=== PATIENT | female | born 1990 | race Caucasian/White ===

== ENCOUNTER 2018-12-31 11:50 | Inpatient (IN) | payer OTHER ==
[2018-12-31] MEDS ORDERED: OXYTOCIN 30 UNITS in 0.9% NS 30 UNIT/500 ML INFUS.BAG IVPB SCH (16:15)
--- NOTE | 2018-12-31 16:19 | HP ---
Past Medical History - Admission Chief Complaint: Labor pain History of Present Illness: 28 yo @ 39 weeks gestation, EDC 01/02/19, admitted for labor pain. Upon admission she was 4cm dilated with intact membrane. History Source: Patient Limitations to Obtaining History: No Limitations - Past Medical History ...: 5 ...Para: 3 ...Term: 3 ...Induced : 1 ...EDC by [facility]: 01/02/19 - Past Surgical History Past Surgical History: Yes: None Hx Myomectomy: No Hx Transabdominal Cerclage: No - Smoking History Smoking history: Never smoked Have you smoked in the past 12 months: No - Alcohol/Substance Use Hx Alcohol Use: No History of Substance Use: reports: None - Social History Usual Living Arrangement: Yes: With Significant Other History of Recent Travel: No Home Medications - Allergies Allergies/Adverse Reactions: Allergies Allergy/AdvReac Type Severity Reaction Status Date / Time No Known Allergies Allergy Verified 04/04/16 23:03 - Home Medications Home Medications: Ambulatory Orders NK [No Known Home Medication] 12/31/18 Review of Systems - Review of Systems Constitutional: reports: No Symptoms Eyes: reports: No Symptoms HENT: reports: No Symptoms Neck: reports: No Symptoms Cardiovascular: reports: No Symptoms Respiratory: reports: No Symptoms Gastrointestinal: reports: No Symptoms Genitourinary: reports: Pain Breasts: reports: No Symptoms Reported Musculoskeletal: reports: No Symptoms Integumentary: reports: No Symptoms Neurological: reports: No Symptoms Endocrine: reports: No Symptoms Hematology/Lymphatic: reports: No Symptoms Psychiatric: reports: No Symptoms Pain Intensity: 4 Physical Exam - Maternity Vital Signs: Vital Signs Temperature 98.5 F 12/31/18 15:00 Pulse Rate 84 12/31/18 15:00 Respiratory Rate 20 12/31/18 15:00 Blood Pressure 112/67 12/31/18 15:00 O2 Sat by Pulse Oximetry (%) Constitutional: Yes: Well Nourished Eyes: Yes: Conjunctiva Clear HENT: Yes: Atraumatic Neck: Yes: Supple Cardiovascular: Yes: Regular Rate and Rhythm Lungs: Clear to auscultation - Abdominal Exam/OB Number of Fetuses: Single Presentation: Vertex - Vaginal Exam/OB Dilatation (cm): 4 Effacement (%): 70 Amniotic Membrane Status: Intact Presentation: Vertex/Position Station: -2 - Physical Exam Musculoskeletal: Yes: WNL Extremities: Yes: WNL Integumentary: Yes: WNL ...Motor Strength: WNL Psychiatric: Yes: Alert, Oriented Problem List - Problems (1) 39 weeks gestation of Problems reviewed: Yes Code(s): Z3A.39 - 39 WEEKS GESTATION OF (2) Pain during labor Problems reviewed: Yes Code(s): O99.89 - OTH DISEASES AND CONDITIONS COMPL PREG/CHLDBRTH; R52 - PAIN, UNSPECIFIED Assessment/Plan 39 weeks gestation Labor pain Admit to L&D Analgesia as needed Consider pitocin augmentation
[2018-12-31] MEDS: DEXTROSE 5%-LACTATED RINGERS 1,000 ML IV SCH (16:30)
[2018-12-31 16:36] VITALS: BMI 23.0
[2018-12-31] MEDS ORDERED: AMPICILLIN SODIUM 2 GM VIAL ONE (16:41)
[2018-12-31] MEDS ORDERED: AMPICILLIN - 2 GM in SODIUM CHLORIDE 100 ML IVPB ONE (16:55)
[2018-12-31] MEDS ORDERED: OXYTOCIN 30 UNITS in 0.9% NS 30 UNIT/500 ML INFUS.BAG IVPB ONE (17:12)
[2018-12-31 17:13] LABS: BASO % 0.1 % (0-2.0); EOS % 0.3 % (0-4.5); HEMATOCRIT 30.8 % (32.4-45.2); LYMPH % 9.5 % (8-40); MCH 28.8 pg (25.7-33.7); MCHC 32.5 g/dl (32.0-36.0); MEAN CELL VOLUME 88.8 fl (80-96); MEAN PLT VOLUME 11.4 fl (7.5-11.1); MONO % 4.9 % (3.8-10.2); NEUT % 85.2 % (42.8-82.8); PLATELET COUNT 165 K/MM3 (134-434); RBC 3.47 M/mm3 (3.60-5.2); RDW 14.7 % (11.6-15.6); WHITE BLOOD COUNT 10.4 K/mm3 (4.0-10.0)
[2018-12-31 17:39] LABS: INR 0.93 (0.83-1.09)
[2018-12-31 17:42] LABS: ACTIVATED PTT 26.9 SECONDS (25.2-36.5)
[2018-12-31 17:43] LABS: CALCIUM 8.9 mg/dL (8.5-10.1); CREATININE 0.8 mg/dL (0.55-1.3); POTASSIUM 4.7 mmol/L (3.5-5.1)
[2018-12-31 18:20] LABS: COCAINE, UR NEGATIVE ng/ml (CUTOFF=300); METHADONE, UR NEGATIVE ng/ml (CUTOFF=300); OPIATES, URI NEGATIVE ng/ml (CUTOFF=300); PHENCYCLIDINE,URINE NEGATIVE ng/ml (CUTOFF=25); URINE AMPHETAMINES NEGATIVE ng/ml (CUTOFF=500); URINE BARBITURATES NEGATIVE ng/ml (CUTOFF=200); URINE BENZODIAZEPINES NEGATIVE ng/ml (CUTOFF=200)
[2018-12-31] MEDS ORDERED: FENTANYL/BUPIVACAINE/NS/PF - PCEA - 50 ML DISP.SYRIN EP ONE (19:30)
[2018-12-31] MEDS ORDERED: NALOXONE HCL 0.4 MG/ML VIAL IVPUSH PRN (20:02)
[2018-12-31] MEDS ORDERED: LIDO 2%/EPI 1:200000 PRESRVFRE (20 ML SDVIAL) ONE (20:13)
[2018-12-31] MEDS ORDERED: BUPIVACAINE HCL/PF 2.5 MG/ML - 30 ML VIAL IJ ONE (20:13)
[2018-12-31] MEDS ORDERED: FENTANYL/BUPIVACAINE/NS/PF - PCEA - 50 ML DISP.SYRIN EP SCH (20:15)
[2018-12-31] MEDS ORDERED: OXYTOCIN 20 UNITS in 0.9% NS 20 UNIT/1,000 ML INFUS.BAG IV ONE ×2 (20:42→22:45)
[2018-12-31] MEDS: OXYTOCIN 20 UNITS in 0.9% NS 20 UNIT/1,000 ML INFUS.BAG IV SCH (20:55)
[2018-12-31] MEDS ORDERED: BENZOCAINE 28 GM HEMORRHOIDAL OINTMENT TP PRN (21:04)
[2018-12-31] MEDS ORDERED: BISACODYL 10 MG SUPP.RECT RC PRN (21:04)
[2018-12-31] MEDS ORDERED: BENZOCAINE 20% 57 GM BOTTLE TP PRN (21:04)
[2018-12-31] MEDS ORDERED: METHYLERGONOVINE MALEATE 0.2 MG/1 ML AMP IM PRN (21:04)
[2018-12-31] MEDS ORDERED: WITCH HAZEL 50% (TUCKS) 40 PAD/JAR PAD TP PRN (21:04)
--- NOTE | 2018-12-31 21:08 | PN ---
Delivery - Delivery Vaginal Delivery: Spontaneous Type of Anesthesia: Epidural Episiotomy/Laceration: 1st degree EBL (cc): 300 Delivery, Single - [place] Feeding Plan Initial Plan: Elected not to breastfeed exclusively throughout hospitalization Remarks - Remarks Remarks: Normal spontaneous vaginal delivery of a live infant girl over first degree laceration. Nose / Oropharynx suctioned @ perineum. Cord clamped and cut. Baby handed to mother then to neonatology nurse. Placenta expelled spontaneously intact. Laceration repaired with 2.0 Biosyn
[2018-12-31] MEDS: AMPICILLIN - 1 GM in SODIUM CHLORIDE 100 ML IVPB SCH (21:46)
[2018-12-31] MEDS ORDERED: OXYTOCIN 10 UNITS/ML VIAL ONE (22:44)
[2018-12-31] MEDS ORDERED: OXYTOCIN IV SCH (22:50)
[2018-12-31] MEDS ORDERED: SODIUM CHLORIDE IV SCH (22:50)
[2018-12-31] MEDS ORDERED: ACETAMINOPHEN 325 MG TABLET (FP) ONE (22:56)
[2018-12-31] MEDS ORDERED: IBUPROFEN 600 MG TABLET (FP) PO ONE (22:56)
[2018-12-31] MEDS: IBUPROFEN 600 MG TABLET (FP) PO PRN (23:00)
[2018-12-31] MEDS: ACETAMINOPHEN 325 MG TABLET (FP) PO PRN (23:01)
[2019-01-01] MEDS: AMPICILLIN - 1 GM in SODIUM CHLORIDE 100 ML IVPB SCH (01:57)
[2019-01-01] MEDS: FERROUS SO4 325 MG TABLET (FP) PO SCH ×3 (01:57→22:04)
[2019-01-01] MEDS: ACETAMINOPHEN 325 MG TABLET (FP) PO PRN ×4 (03:08→20:17)
[2019-01-01] MEDS: OXYTOCIN 20 UNITS in 0.9% NS 20 UNIT/1,000 ML INFUS.BAG IV SCH (03:08)
[2019-01-01] MEDS: IBUPROFEN 600 MG TABLET (FP) PO PRN ×3 (03:09→20:17)
--- NOTE | 2019-01-01 07:24 | PN ---
Post Progress Note - Subjective Subjective: 28 yo Para 4, status post vaginal delivery, seen and evaluated. Doing well. Post Day: 1 Type of Delivery: Vital Signs: Vital Signs Temperature 97.8 F 01/01/19 05:46 Pulse Rate 62 01/01/19 05:46 Respiratory Rate 18 01/01/19 05:46 Blood Pressure 122/68 01/01/19 05:46 O2 Sat by Pulse Oximetry (%) 100 12/31/18 22:19 Breast Exam: Yes: Soft Uterus: Yes: Fundus Firm Abdomen/GI: Yes: Abdomen soft Lochia: Yes: Rubra Lochia, amount: Moderate Extremities: Yes: Calves non-tender Perineum: Yes: Laceration (Healing) Activity: Other (She's lying in bed) - Labs Labs: CBC WBC 10.4 K/mm3 (4.0-10.0) H 12/31/18 16:25 RBC 3.47 M/mm3 (3.60-5.2) L 12/31/18 16:25 Hgb 10.0 GM/dL (10.7-15.3) L 12/31/18 16:25 Hct 30.8 % (32.4-45.2) L 12/31/18 16:25 MCV 88.8 fl (80-96) 12/31/18 16:25 MCH 28.8 pg (25.7-33.7) 12/31/18 16:25 MCHC 32.5 g/dl (32.0-36.0) 12/31/18 16:25 RDW 14.7 % (11.6-15.6) 12/31/18 16:25 Plt Count 165 K/MM3 (134-434) 12/31/18 16:25 MPV 11.4 fl (7.5-11.1) H D 12/31/18 16:25 Absolute Neuts (auto) 8.8 K/mm3 (1.5-8.0) H 12/31/18 16:25 Neutrophils % 85.2 % (42.8-82.8) H 12/31/18 16:25 Lymphocytes % 9.5 % (8-40) D 12/31/18 16:25 Monocytes % 4.9 % (3.8-10.2) 12/31/18 16:25 Eosinophils % 0.3 % (0-4.5) 12/31/18 16:25 Basophils % 0.1 % (0-2.0) 12/31/18 16:25 Nucleated RBC % 0 % (0-0) 12/31/18 16:25 Problem List - Problems (1) 39 weeks gestation of Problems reviewed: Yes Code(s): Z3A.39 - 39 WEEKS GESTATION OF (2) Pain during labor Problems reviewed: Yes Code(s): O99.89 - OTH DISEASES AND CONDITIONS COMPL PREG/CHLDBRTH; R52 - PAIN, UNSPECIFIED (3) Status post normal vaginal delivery Problems reviewed: Yes Code(s): [id number] - Assessment/Plan Status post vaginal delivery Stable Continue routine care
[2019-01-01] MEDS: PRENATAL VITAMINS W/ FOLIC ACID TABLET (FP) PO SCH (09:08)
[2019-01-01] MEDS ORDERED: ACETAMINOPHEN 325 MG TABLET (FP) PO PRN (09:30)
[2019-01-01] MEDS: oxyCODONE HCL 5 MG TABLET PO PRN ×2 (09:39→14:17)
[2019-01-01 10:17] LABS: BASO % 0.2 % (0-2.0); EOS % 0.3 % (0-4.5); HEMATOCRIT 24.2 % (32.4-45.2); HEMOGLOBIN 8.1 GM/dL (10.7-15.3); LYMPH % 6.9 % (8-40); MCH 29.3 pg (25.7-33.7); MCHC 33.4 g/dl (32.0-36.0); MEAN CELL VOLUME 87.6 fl (80-96); MEAN PLT VOLUME 11.3 fl (7.5-11.1); MONO % 4.4 % (3.8-10.2); NEUT % 88.2 % (42.8-82.8); PLATELET COUNT 123 K/MM3 (134-434); RBC 2.76 M/mm3 (3.60-5.2); RDW 14.6 % (11.6-15.6); WHITE BLOOD COUNT 10.3 K/mm3 (4.0-10.0)
[2019-01-01] MEDS: DEXTROSE 5%-LACTATED RINGERS 1,000 ML IV SCH (17:32)
[2019-01-01] MEDS ORDERED: SENNOSIDES/DOCUSATE COMBO (SENNA PLUS) TABLET (UD) PO PRN (22:00)
[2019-01-02] MEDS: IBUPROFEN 600 MG TABLET (FP) PO PRN ×2 (02:24→08:43)
[2019-01-02] MEDS: ACETAMINOPHEN 325 MG TABLET (FP) PO PRN ×2 (02:25→08:43)
[2019-01-02 08:50] VITALS: BP 103/71; PULSE 80; TEMP 97.9
[2019-01-02] MEDS: FERROUS SO4 325 MG TABLET (FP) PO SCH (09:30)
[2019-01-02] MEDS: PRENATAL VITAMINS W/ FOLIC ACID TABLET (FP) PO SCH (09:30)
--- NOTE | 2019-01-02 10:23 | DS ---
Physical Exam-[employer] Vital Signs: Vital Signs Temperature 97.9 F 01/02/19 08:49 Pulse Rate 80 01/02/19 08:49 Respiratory Rate 18 01/02/19 08:49 Blood Pressure 103/71 01/02/19 08:49 O2 Sat by Pulse Oximetry (%) 100 12/31/18 22:19 Constitutional: Yes: Well Nourished Eyes: Yes: Conjunctiva Clear HENT: Yes: Atraumatic Neck: Yes: Supple Cardiovascular: Yes: Regular Rate and Rhythm Respiratory: Yes: Regular Gastrointestinal: Yes: Normal Bowel Sounds ...Rectal Exam: Yes: WNL External Genitalia: Yes: Normal Vaginal Exam: Yes: Normal Cervix: Yes: Normal Uterus: Yes: Normal ....Post : Yes: Uterus firm, Moderate lochia serosa Neurological: Yes: Alert, Oriented ...Motor Strength: WNL Psychiatric: Yes: Alert, Oriented Labs: CBC, BMP 01/01/19 09:20 12/31/18 16:25 Delivery - Delivery Vaginal Delivery: Spontaneous Type of Anesthesia: Epidural Episiotomy/Laceration: 1st degree EBL (cc): 300 Delivery, Single - Stages of Labor Date 1st Stage Initiatied: 12/31/18 Time 1st Stage Initiated: 19:30 Date 2nd Stage Initiated: 12/31/18 Time 2nd Stage Initiated: 20:45 Date of Delivery: 12/31/18 Time of Delivery: 20:51 Time Placenta Delivered: 20:53 - Condition of Event Planning Intern/Lead Tinner Present: No Gender: Female Weight: 8 lb 5 oz Position: Right, OT Total Hours ROM (Hrs/Mins): 41m - 1 Minute Total Score: 9 5 Minutes Total Score: 9 - [place] Feeding Plan Initial Plan: Elected not to breastfeed exclusively throughout hospitalization Discharge Summary Problems reviewed: Yes Current Active Problems 39 weeks gestation of (Acute) Pain during labor (Acute) Status post normal vaginal delivery (Acute) Procedures: Principal: Normal spontaneous vaginal delivery Hospital Course: [facility] care Health Concerns: None Plan of Treatment: Analgesia Follow up visit in 6 weeks, in clinic Goals: Resume normal activities in 6 weeks Condition: Good - Instructions Diet, Activity, Other Instructions: Regular diet No douching, no sexual intercourse x 6 weeks F/U in clinic in 6 weeks Disposition: HOME - Home Medications Comprehensive Discharge Medication List: Ambulatory Orders NK [No Known Home Medication] 12/31/18
== END 2019-01-02 12:05 | disposition home or self-care (01) | DRG 560 ==
LOC: JDEL 11:50 → JLDR 16:00 → J3W 23:55
PROVIDERS: ADMIT Obstetrics & Gynecology; ATTEND Obstetrics & Gynecology
PROC: 0HQ9XZZ Repair Perineum Skin, External Approach (ICD-10-PCS; principal; 2018-12-31)
PROC: 10E0XZZ Delivery of Products of Conception, External Approach (ICD-10-PCS; 2018-12-31)
DX: O70.0 First degree perineal laceration during delivery (principal); Z3A.39 39 weeks gestation of pregnancy; Z37.0 Single live birth
CPT/HCPCS: 36415; 59409; 80048; 80307; 85025; 85610; 85730; 86593; 86850; 86900; 86901; 87389; J7030